=== PATIENT | female | born 1995 | race African-American/Black ===

== ENCOUNTER → 2019-03-25 | Emergency (ER) | payer OTHER ==
[~2019-03-25] MED LIST: DEXAMETHASONE LIQUID 0.5 MG/5 ML 240 ML BULK BOTTLE PO ONE; DEXAMETHASONE SOD PHOSPHATE 10 MG/1 ML VIAL IM ONE; DEXAMETHASONE SOD PHOSPHATE 10 MG/1 ML VIAL ONE
[2019-03-25 09:35] VITALS: BP 110/59; PULSE 69; TEMP 98; BMI 44.3
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
== END | disposition home or self-care (01) ==
LOC: JERFT 09:18
PROC: 3E023GC Introduction of Other Therapeutic Substance into Muscle, Percutaneous Approach (ICD-10-PCS; principal; 2019-03-25)
DX: G62.9 Polyneuropathy, unspecified (principal); F17.210 Nicotine dependence, cigarettes, uncomplicated
CPT/HCPCS: 72170-TC-FY; 73552-TC-LT-FY; 73590-TC-LT-FY; 99281-25; J1100

== ENCOUNTER 2020-01-24 09:15 | Emergency (ER) | payer OTHER ==
[2020-01-24 09:23] VITALS: BP 118/68; PULSE 78; TEMP 98.6; BMI 45.9
[2020-01-24 11:17] LABS: URINE APPEARANCE CLEAR; URINE BILIRUBIN NEGATIVE (NEGATIVE); URINE COLOR YELLOW; URINE GLUCOSE (UA) NEGATIVE (NEGATIVE); URINE KETONE NEGATIVE (NEGATIVE); URINE LEUK ESTERASE NEGATIVE (NEGATIVE); URINE NITRITE NEGATIVE (NEGATIVE); URINE PROTEIN NEGATIVE (NEGATIVE); URINE UROBILINOGEN 0.2 mg/dL (0.2-1.0)
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
== END 2020-01-24 12:29 | disposition home or self-care (01) ==
LOC: JERFT 09:15
DX: B34.9 Viral infection, unspecified (principal); E66.01 Morbid (severe) obesity due to excess calories; Z68.42 Body mass index [BMI] 45.0-49.9, adult; Z72.51 High risk heterosexual behavior; Z91.010 Allergy to peanuts
CPT/HCPCS: 36415; 81003; 84703; 87086; 87389; 87491; 87591; 99283-25

== ENCOUNTER 2021-09-03 16:09 | Emergency (ER) | payer BC, OTHER ==
[2021-09-03 16:33] VITALS: BP 121/81; PULSE 98; TEMP 98; BMI 30.2
[2021-09-03 18:03] LABS: BASO % 0.9 % (0-2.0); EOS % 1.7 % (0-4.5); HEMATOCRIT 48.4 % (32.4-45.2); HEMOGLOBIN 15.9 GM/dL (10.7-15.3); MCH 27.8 pg (25.7-33.7); MCHC 32.8 g/dl (32.0-36.0); MEAN CELL VOLUME 84.8 fl (80-96); MEAN PLT VOLUME 8.9 fl (7.5-11.1); MONO % 5.7 % (3.8-10.2); NEUT % 49.7 % (42.8-82.8); PLATELET COUNT 220 10^3/uL (134-434); RDW 16.3 % (11.6-15.6); WHITE BLOOD COUNT 4.9 K/mm3 (4.0-10.0)
[2021-09-03 18:19] LABS: CHLORIDE 106 mmol/L (98-107); SODIUM 144 mmol/L (136-145)
[2021-09-03 18:20] LABS: CALCIUM 8.3 mg/dL (8.5-10.1)
[2021-09-03 18:21] LABS: ALBUMIN 3.3 g/dl (3.4-5.0); ANION GAP 9 MMOL/L (8-16); BLOOD UREA NITROGEN 8.4 mg/dL (7-18); CO2 29 mmol/L (21-32)
[2021-09-03 18:23] LABS: GLUCOSE,RANDOM 86 mg/dL (74-106)
[2021-09-03 18:24] LABS: CREATININE 0.8 mg/dL (0.55-1.3); SGOT/AST 24 U/L (15-37); SGPT/ALT 30 U/L (13-61)
[2021-09-03 18:26] LABS: BILIRUBIN,TOTAL 0.7 mg/dL (0.2-1)
[2021-09-03 18:27] LABS: ALK PHOS 63 U/L (45-117)
== END 2021-09-03 18:44 | disposition home or self-care (01) ==
LOC: JER 16:09
DX: N93.9 Abnormal uterine and vaginal bleeding, unspecified (principal)
CPT/HCPCS: 36415; 80053; 84443; 84702; 85025; 99283-25

== ENCOUNTER 2023-05-22 13:12 | Emergency (ER) | payer OTHER ==
[2023-05-22 13:26] VITALS: RESP 18; BMI 41.1
[2023-05-22 14:16] LABS: HCG,QUALITATIVE URINE Positive; PH,URINE 5.5 (5.0-8.0); URINE APPEARANCE CLEAR; URINE BILIRUBIN NEGATIVE (NEGATIVE); URINE COLOR YELLOW; URINE GLUCOSE (UA) NEGATIVE (NEGATIVE); URINE KETONE TRACE (NEGATIVE); URINE LEUK ESTERASE NEGATIVE (NEGATIVE); URINE NITRITE NEGATIVE (NEGATIVE); URINE PROTEIN NEGATIVE (NEGATIVE)
[2023-05-22 15:09] LABS: BASO % 0.5 % (0-2.0); EOS % 1.1 % (0-4.5); HEMATOCRIT 38.6 % (32.4-45.2); HEMOGLOBIN 12.8 GM/dL (10.7-15.3); LYMPH % 19.3 % (8-40); MCH 26.2 pg (25.7-33.7); MCHC 33.1 g/dl (32.0-36.0); MEAN CELL VOLUME 79.1 fl (80-96); MEAN PLT VOLUME 8.3 fl (7.5-11.1); MONO % 8.6 % (3.8-10.2); NEUT % 70.5 % (42.8-82.8); PLATELET COUNT 197 10^3/uL (134-434); RBC 4.89 M/mm3 (3.60-5.2); RDW 13.9 % (11.6-15.6); WHITE BLOOD COUNT 8.8 K/mm3 (4.0-10.0)
[2023-05-22 15:15] LABS: INR 1.06 (0.83-1.09); PROTHROMBIN TIME (PATIENT) 12.3 SEC (9.7-13.0)
[2023-05-22 15:17] LABS: ACTIVATED PTT 28.4 SECONDS (25.2-36.5)
[2023-05-22 15:32] LABS: POTASSIUM 3.7 mmol/L (3.5-5.1)
[2023-05-22 15:36] LABS: BLOOD UREA NITROGEN 8.9 mg/dL (7-18); CALCIUM 8.8 mg/dL (8.5-10.1)
[2023-05-22 15:40] LABS: CREATININE 0.6 mg/dL (0.55-1.3)
[2023-05-22 15:41] LABS: BILIRUBIN,TOTAL 0.4 mg/dL (0.2-1); TOT PROT 6.6 g/dl (6.4-8.2)
[2023-05-22 18:08] VITALS: BP 127/75; PULSE 86; TEMP 97.4
== END 2023-05-22 18:46 | disposition home or self-care (01) ==
LOC: JER 13:12
DX: O26.891 Other specified pregnancy related conditions, first trimester (principal); R10.84 Generalized abdominal pain; R09.81 Nasal congestion; Z3A.14 14 weeks gestation of pregnancy; Z20.822 Contact with and (suspected) exposure to COVID-19
CPT/HCPCS: 0241U-QW; 36415; 76801-TC; 80053; 81003; 84702; 84703; 85025; 85610; 85730; 86850; 86900; 86901; 87086; 99284-25

== ENCOUNTER 2024-09-03 23:22 | Emergency (ER) | payer OTHER ==
[2024-09-03 23:33] VITALS: BP 123/89; PULSE 78; RESP 18; TEMP 98.2; BMI 41.8
[2024-09-04] MEDS: ACETAMINOPHEN 500 MG TABLET (FP) PO ONE (03:11)
[2024-09-04 03:12] LABS: EOS % 3.2 % (0-4.5); HEMATOCRIT 37.5 % (32.4-45.2); HEMOGLOBIN 12.1 GM/dL (10.7-15.3); MCH 25.8 pg (25.7-33.7); MCHC 32.4 g/dl (32.0-36.0); MEAN CELL VOLUME 79.6 fl (80-96); MEAN PLT VOLUME 7.9 fl (7.5-11.1); MONO % 3.5 % (3.8-10.2); NEUT % 43.3 % (42.8-82.8); PLATELET COUNT 243 10^3/uL (134-434); RBC 4.71 M/mm3 (3.60-5.2); RDW 14.2 % (11.6-15.6); WHITE BLOOD COUNT 4.4 K/mm3 (4.0-10.0)
[2024-09-04] MEDS ORDERED: ACETAMINOPHEN 500 MG TABLET (FP) ONE (03:13)
[2024-09-04 03:59] LABS: POTASSIUM 3.9 mmol/L (3.5-5.1)
[2024-09-04 04:01] LABS: ALBUMIN 3.1 g/dl (3.4-5.0); CALCIUM 8.5 mg/dL (8.5-10.1)
[2024-09-04 04:02] LABS: BLOOD UREA NITROGEN 16.1 mg/dL (7-18)
[2024-09-04 04:05] LABS: CREATININE 0.7 mg/dL (0.55-1.3)
[2024-09-04 04:06] LABS: BILIRUBIN,TOTAL 0.3 mg/dL (0.2-1); TOT PROT 6.1 g/dl (6.4-8.2)
== END 2024-09-04 05:06 | disposition home or self-care (01) ==
LOC: JER 23:22
DX: O20.9 Hemorrhage in early pregnancy, unspecified (principal); Z3A.00 Weeks of gestation of pregnancy not specified
CPT/HCPCS: 36415; 76817-TC; 80053; 84702; 85025; 86850; 86900; 86901; 99284-25